=== PATIENT | male | born 1965 | race Two or more races ===

== ENCOUNTER 2018-12-08 23:36 | Emergency (ER) | payer SELFPAY ==
--- NOTE | 2018-12-09 00:23 | ER Document Report ---
ED General - General Chief Complaint: Dizziness Stated Complaint: DIZZINESS,LOSS OF BALANCE Time Seen by Provider: 12/09/18 00:22 Notes: Patient is a 53-year-old male that presents to the emergency department for chief complaint of dizziness and ear ringing. Patient started having lightheadedness, and room spinning like vertigo symptoms early this morning, and went to work, was in the sun most the day, and his symptoms persisted, he felt o ff balance, with associated nausea but no vomiting. He denies any associated headache with this. He was having ringing in his right ear as well. He denies having any numbness, weakness or tingling in any extremity. Denies any slurred speech or change in speech or difficulty swallowing. No other complaints at this time, denies having any pain. Past Medical History: Hypertension Past Surgical History: Denies recent or pertinent surgical history Social History: Denies tobacco, alcohol or illicit drug use. Family History: Reviewed and noncontributory for presenting illness Allergies: Reviewed, see documented allergy list. REVIEW OF SYSTEMS: Other than noted above, the 12 point review of systems was reviewed with the patient and were negative, all pertinent findings are included in the HPI. PHYSICAL EXAMINATION: Vital signs reviewed, nursing noted reviewed. GENERAL: Well-appearing, well-nourished and in no acute distress. HEAD: Atraumatic, normocephalic. EYES: Eyes appear normal, extraocular movements intact, sclera anicteric, conjunctiva are normal. Noted to be horizontal gaze nystagmus to the right. ENT: nares patent, oropharynx clear without exudates. Moist mucous membranes. The right TM, has a mild middle ear effusion, no erythema, the left TM is unremarkable. NECK: Normal range of motion, supple without lymphadenopathy LUNGS: Breath sounds clear to auscultation bilaterally and equal. No wheezes rales or rhonchi. HEART: Regular rate and rhythm without murmurs ABDOMEN: Soft, nontender, normoactive bowel sounds. No rebound, guarding, or rigidity. No masses appreciated. EXTREMITIES: Nontender, good range of motion, no pitting or edema. NEUROLOGICAL: No focal neurological deficits. Moves all extremities spontaneously Motor and sensory grossly intact on exam. Normal [id number] testing, normal heel silva testing PSYCH: Normal mood, normal affect. SKIN: Warm, Dry, normal turgor, no rashes or lesions noted on exposed skin TRAVEL OUTSIDE OF THE [place] IN LAST 30 DAYS: No - Related Data Allergies/Adverse Reactions: aspirin Allergy (Verified 12/08/18 23:56) Sulfa (Sulfonamide Antibiotics) Allergy (Verified 12/08/18 23:56) Past Medical History - Social History Smoking Status: Never Smoker Family History: Reviewed & Not Pertinent Physical Exam - Vital signs Vitals: Temp Pulse Resp BP Pulse Ox 98.1 F 55 L 18 163/94 H 97 12/08/18 23:50 12/08/18 23:50 12/08/18 23:50 12/08/18 23:50 12/08/18 23:50 Course - Re-evaluation Re-evalutation: Patient seen and examined vital signs reviewed. Laboratory data and/or imaging were ordered as appropriate for the patient's presenting symptoms and complaint, with consideration of any critical or life threatening conditions that may be associated with their obtained history and exam as noted above. Patient was treated with IV fluids, Valium and meclizine p.o. Results were reviewed when available and demonstrated unremarkable blood work, did not feel the patient needed CT imaging, as he was having ear ringing, he did have horizontal gaze nystagmus, and no headache, or other focal neurological deficits, and cerebellar testing was negative. Patient was reevaluated after treatment, and his symptoms had completely resolved, he was feeling well, and felt ready for discharge. Evaluation was most consistent with vertigo, likely benign paroxysmal positional vertigo, due to inner ear effusion, will prescribe Flonase, and meclizine and have him follow-up with primary care. Results were discussed with the patient at this point, after careful consideration I feel that that patient can be discharged from the emergency department, the patient was educated treatments and reasons to return to the emergency department based on their presumed diagnosis as noted above, they were advised to followup with a primary care physician in 2-3 days. Patient was agreeable to plan of care. *Note is created using voice recognition software and may contain spelling, syntax or grammatical errors. Laboratory 12/09/18 12/09/18 01:23 01:23 WBC 6.7 RBC 4.92 Hgb 14.6 Hct 43.2 MCV 88 MCH 29.7 MCHC 33.8 RDW 13.6 Plt Count 253 Lymph % (Auto) 26.2 [place] % (Auto) 7.6 Eos % (Auto) 3.3 Baso % (Auto) 0.9 Absolute Neuts (auto) 4.2 Absolute Lymphs (auto) 1.8 Absolute Monos (auto) 0.5 Absolute Eos (auto) 0.2 Absolute Basos (auto) 0.1 Seg Neutrophils % 62.0 Sodium 140.4 Potassium 3.9 Chloride 104 Carbon Dioxide 29 Anion Gap 7 BUN 16 Creatinine 0.81 Est GFR ( Amer) > 60 Est GFR (MDRD) Non-Af > 60 Glucose 103 Calcium 9.4 - Vital Signs Vital signs: Temp Pulse Resp BP Pulse Ox 98.1 F 55 L 14 152/99 H 98 12/08/18 23:50 12/08/18 23:50 12/09/18 01:01 12/09/18 01:01 12/09/18 01:01 - Laboratory Result Diagrams: 12/09/18 01:23 12/09/18 01:23 - EKG Interpretation by Me Additional EKG results interpreted by me: EKG demonstrates sinus bradycardia with a ventricular rate of 47 bpm, normal axis, QTC 396 ms, J-point elevation in lead V2, no ST depressions or elevations, no signs or concern for ischemia. No prior for comparison. Discharge - Discharge Clinical Impression: Vertigo Condition: Stable Disposition: HOME, SELF-CARE Instructions: Vertigo (OM) Additional Instructions: Please take the prescribed medication as directed, and I recommend you sleep at a 45 degree angle for the next 5 days, as this will help with your symptoms as well. Prescriptions: Fluticasone Propionate [Flonase Nasal [place] 50 Mcg/[place] 16 gm] 1 spray NASL Q12 #1 inhaler Meclizine HCl [Motion Relief] 25 mg PO Q8H PRN #20 tablet PRN Reason: Dizziness Referrals: STACY IRVING MD [[facility] BASED STAFF] - Follow up in 3-5 days (primary care. ) Print Language: Togolese
[2018-12-09] MEDS ORDERED: NORMAL SALINE 1000 ML 1,000 ML IV ONE (00:38)
[2018-12-09] MEDS ORDERED: DIAZEPAM INJ 10 MG/2 ML DISP.SYRIN IV ONE (00:38)
[2018-12-09] MEDS ORDERED: MECLIZINE HCL 25 MG TABLET PO ONE (00:38)
[2018-12-09 01:37] LABS: ABSOLUTE BASOPHILS # (AUTO) 0.1 10^3/uL (0.0-0.2); ABSOLUTE EOSINOPHILS # (AUTO) 0.2 10^3/uL (0.0-0.6); ABSOLUTE LYMPHOCYTES (AUTO) 1.8 10^3/uL (0.5-4.7); ABSOLUTE MONOCYTES (AUTO) 0.5 10^3/uL (0.1-1.4); ABSOLUTE NEUT (AUTO) 4.2 10^3/uL (1.7-8.2); BASOPHILS % (AUTO) 0.9 % (0-2); EOSINOPHILS % (AUTO) 3.3 % (0-6); HEMATOCRIT 43.2 % (37.9-51.0); HEMOGLOBIN 14.6 g/dL (13.5-17.0); LYMPHOCYTES % (AUTO) 26.2 % (13-45); MEAN CORPUSCULAR HEMOGLOBIN 29.7 pg (27.0-33.4); MEAN CORPUSCULAR HGB CONC 33.8 g/dL (32.0-36.0); MEAN CORPUSCULAR VOLUME 88 fl (80-97); MONOCYTES % (AUTO) 7.6 % (3-13); PLATELET COUNT 253 10^3/uL (150-450); RED BLOOD COUNT 4.92 10^6/uL (4.35-5.55); RED CELL DISTRIBUTION WIDTH 13.6 % (11.5-14.0); TOTAL CELLS COUNTED % (AUTO) 100 %; WHITE BLOOD COUNT 6.7 10^3/uL (4.0-10.5)
[2018-12-09 01:59] LABS: ANION GAP 7 (5-19); BLOOD UREA NITROGEN 16 mg/dL (7-20); CALCIUM 9.4 mg/dL (8.4-10.2); CARBON DIOXIDE 29 mmol/L (22-30); CHLORIDE 104 mmol/L (98-107); GLUCOSE 103 mg/dL (75-110); POTASSIUM 3.9 mmol/L (3.6-5.0)
[2018-12-09 03:04] VITALS: BP 135/78
--- NOTE | 2018-12-09 09:41 | EKG REPORT ---
SEVERITY:- ABNORMAL ECG - SINUS BRADYCARDIA INCOMPLETE RIGHT BUNDLE BRANCH BLOCK MINIMAL ST ELEVATION, ANTERIOR LEADS : Confirmed by: Ronnie Vyas MD 09-Dec-2018 09:40:32
== END 2018-12-09 03:17 | disposition home or self-care (01) ==
LOC: ER 23:36
DX: R42 Dizziness and giddiness (principal); R11.0 Nausea; I10 Essential (primary) hypertension
CPT/HCPCS: 93005; 99284; 96361; 96374; 36415; 85025; 80048; 93010; J3360; J7030